=== PATIENT | female | born 1950 | race Caucasian/White ===

== ENCOUNTER → 2016-08-07 | Outpatient (CLI) | payer OTHER, MEDICARE ==
[~2016-08-07] MED LIST: ASPCH81X PO; CHOL100010 PO; FLAX100019 PO; GING550C PO; LEVO100T PO; LISI-787 PO; OXYB5TAB74 PO; SIMV40TA2 PO; TRIA1SPR4 NAE
[2016-08-07 15:41] LABS: BASO % 0.6 %; BASO ABS # 0.04 K/uL (0-0.2); COMPLETE YES; EOS % 1.8 %; HEMATOCRIT 39.3 % (37-47); IG% 0.1 %; LYMPH % 35.6 %; MEAN CELL VOLUME 90.8 fL (80-100); MEAN CORPUSCULAR HEMOGLOBIN 29.3 pg (25-34); MEAN CORPUSCULAR HGB CONC 32.3 g/dl (32-36); MEAN PLATELET VOLUME 8.7 fL (7.4-10.4); MONO % 11.6 %; NEUT % 50.3 %; PLATELET COUNT 385 K/uL (130-400); RED BLOOD COUNT 4.33 M/uL (4.2-5.4); WHITE BLOOD COUNT 6.74 K/uL (4.8-10.8)
[2016-08-07 16:05] LABS: ALT/SGPT 50 U/L (12-78); AST/SGOT 23 U/L (15-37)
[2016-08-07 16:46] LABS: LYME DISEASE AB IGG POS (NEG); LYME DISEASE AB IGM EQUIVOCAL (NEG)
[2016-08-13 15:53] LABS: 18KDIGG BAND REACTIVE (NONREACTIVE); 23KDIGG BAND REACTIVE (NONREACTIVE); 23KDIGM BAND REACTIVE (NONREACTIVE); 28KDIGG BAND REACTIVE (NONREACTIVE); 30KDIGG BAND REACTIVE (NONREACTIVE); 39KDIGG BAND REACTIVE (NONREACTIVE); 39KDIGM BAND REACTIVE (NONREACTIVE); 41KDIGG BAND REACTIVE (NONREACTIVE); 41KDIGM BAND NONREACTIVE (NONREACTIVE); 45KDIGG BAND REACTIVE (NONREACTIVE); 58KDIGG BAND REACTIVE (NONREACTIVE); 66KDIGG BAND REACTIVE (NONREACTIVE); 93KDIGG BAND REACTIVE (NONREACTIVE)
== END | disposition home or self-care (01) ==
LOC: C.LAB 14:58
DX: R50.9 Fever, unspecified (principal)

== ENCOUNTER → 2016-10-11 | Outpatient (CLI) | payer OTHER, MEDICARE ==
--- NOTE | 2016-10-11 13:36 | MAMMOGRAPHY REPORT ---
BILATERAL DIGITAL DIAGNOSTIC MAMMOGRAM TOMOSYNTHESIS WITH CAD AND TARGETED LEFT ULTRASOUND: 10/11/2016 CLINICAL HISTORY: History of left breast cancer status post lumpectomy April 2015. The patient repor ts she did not undergo radiation therapy. The pathology report shows negative margins at the lumpect joaquina site. [place] lymph node biopsy did show one lymph node with microinvasion. The patient denies any current complaints. TECHNIQUE: Breast tomosynthesis in addition to standard 2D mammography was performed. Current study was also evaluated with a Computer Aided Detection (CAD) system. Bilateral CC and MLO 2-D and tomosy nthesis images and spot magnification left CC and ML views were obtained. COMPARISON: Comparison is made to exams dated: 03/13/2015 mammogram, 03/06/2015 mammogram, 03/03/2014 m ammogram, 03/13/2015 ultrasound, 03/01/2013 mammogram, and 02/20/2012 mammogram - [facility] enter. BREAST COMPOSITION: The tissue of both breasts is heterogeneously dense, which may obscure small mas ses. FINDINGS: There are new post surgical changes in the left medial breast at approximately 9:00 from p rior lumpectomy, including new density and architectural distortion at the lumpectomy bed. A linear scar marker denotes a scar on the left 9:00 breast. Spot magnification views of the lumpectomy bed d emonstrate no suspicious masses or clusters of microcalcifications. However, there is an abnormally enlarged left axillary lymph node which measures 2.3 x 1.9 cm. Additionally, there is another smalle r 5 mm left axillary lymph node which is not clearly morphologically normal mammographically. The remainder of both breasts are stable compared to prior exams, without suspicious masses, calcific ations, or areas of architectural distortion noted. Targeted ultrasound was performed of the left axillary region in the region of the abnormal lymph nod es seen mammographically. In the left low axilla, at approximately 1:00 8 cm from the nipple, there is an abnormally enlarged left axillary lymph node which lacks a normal fatty hilum and demonstrates significant cortical thickening. The lymph node measures 2.2 x 1.5 cm in size. This corresponds wit h the dominant abnormal lymph node seen mammographically. Additionally, higher in the left axilla is a 3 x 4 mm lymph node which is round in shape and also lacks a fatty hilum and is morphologically ab normal. This corresponds with the smaller lymph node seen mammographically. The 2 lymph nodes are w orrisome for metastases and ultrasound guided biopsy of at least one of the lymph nodes is recommende d for further evaluation. Other morphologically normal left axillary lymph nodes are seen which demo nstrate normal fatty hilum and thin peripheral cortices. IMPRESSION: ACR BI-RADS CATEGORY 4C: MODERATE SUSPICION FOR MALIGNANCY, TARGETED ULTRASOUND ACR BI-R ADS CATEGORY 4C: MODERATE SUSPICION FOR MALIGNANCY 1. Two morphologically normal left axillary lymph nodes, the largest measuring 2.2 cm in size. The lymph nodes are worrisome for metastases and ultrasound guided biopsy of the dominant abnormal left a xillary lymph node is recommended for further evaluation. The other smaller lymph node could also be biopsied if clinically necessary (if it would change surgical management). 2. Expected post surgical changes in the left 9:00 breast from prior lumpectomy, with no mammographic evidence of malignancy involving breast parenchyma bilaterally. A phone call was made to the physician's office to confirm faxed results were received. The patient has been verbally notified of the results. She tentatively scheduled the biopsy [facility] Approximately 10% of breast cancers are not detected with mammography. A negative mammographic report should not delay biopsy if a clinically suggestive mass is present. Vivienne Nogueira M.D. ah/:10/11/2016 12:00:31 Cell Cleaner: Linda ESPINOZA)(Mayra), [facility] letter sent: Abnormal 4/5 BI-RADS Code: ACR BI-RADS Category 4C: Moderate Suspicion For Malignancy Ultrasound BI-RADS: ACR BI- RADS Category 4C: Moderate Suspicion For Malignancy
== END | disposition home or self-care (01) ==
LOC: C.MAMM 09:19
PROVIDERS: ATTEND Internal Medicine Hematology & Oncology
DX: C50.912 Malignant neoplasm of unspecified site of left female breast (principal); R92.8 Other abnormal and inconclusive findings on diagnostic imaging of breast

== ENCOUNTER → 2016-11-01 | Outpatient (CLI) | payer OTHER, MEDICARE ==
--- NOTE | 2016-11-01 14:19 | Discharge Instructions ---
Discharge Instructions Procedure Procedure Date: Nov 01, 2016. Reason for visit: Left Axillary Lymph Node. Discharge Discharge Date: Nov 01, 2016. Discharge Diagnosis: status post biopsy Instructions Activity Recommendations: Additional Limitations (see below) Return to School/Work: no limitations Recommended Home Diet: No Limitations Provider Instructions: ACTIVITY RECOMMENDATIONS: * No lifting, pushing, pulling or exercising the affected side for three days. RETURN TO SCHOOL/WORK: * You may return to work/school after the procedure, but do not perform any strenuous activities for 24 to 48 hours. MEDICATIONS: * Tylenol (two 325 mg) every four to six hours if needed for mild pain (if not allergic to Tylenol). DIET: * Resume previous diet. SPECIAL CARE INSTRUCTIONS: * Keep biopsy site dry for 24 hours. May shower after 24 hours, but do not soak (bathe) incision. * May remove Tegaderm (plastic patch) tomorrow AFTER showering. * Leave the steri-strips on for one week. Allow the steri-strips to fall off by themselves. If not off after one week, you may remove them. You may place a Bandaid crosswise over the strips, if desired. * Apply ice 10 minutes on and 10 minutes off as needed. * Wear a bra at bedtime to sleep more comfortably for 2-3 days. * Your referring physician should have the results after approximately 5 to 7 business days. * Call for unusual bleeding, fever, drainage, etc or if you have any questions call during normal business hours or after hours call Dr Nogueira, [phone]. FOLLOW UP VISIT: Follow-up with Referring Physician as scheduled. Allergies Coded Allergies: No Known Allergies (Unverified Allergy, Mild, 01/13/06) Jesica Somers Recommendations: Call your doctor if: * Temperature above 101 degrees * Pain not relieved by pain medicine ordered * There is increased drainage or redness from any incision * You have any unanswered questions or concerns. Your Doctors Instructions noted above were prepared by provider Vivienne Nogueira. Patient Signature Section: Patient Instructions Signature Page Matilde Hinson Patient (or Guardian) Signature/Date: I have read and understand the instructions given to me by my caregivers. Caregiver/RN/Doctor Signature/Date: The above-named patient and/or guardian has received patient instructions on this date. + Original Patient Signature Page (only) stays with chart. Please make copy for patient.
--- NOTE | 2016-11-01 16:10 | MAMMOGRAPHY REPORT ---
UNILATERAL LEFT DIGITAL DIAGNOSTIC MAMMOGRAM: 11/01/2016 CLINICAL HISTORY: Status post ultrasound guided biopsy of an abnormal left axillary lymph node. TECHNIQUE: Postprocedural left ML and XCCL views were obtained. COMPARISON: Comparison is made to exams dated: 10/11/2016 ultrasound, 10/11/2016 mammogram, 03/13/2015 ultrasound biopsy, 03/13/2015 mammogram, 03/13/2015 ultrasound, and 03/06/2015 mammogram - [facility]. BREAST COMPOSITION: The tissue of the left breast is heterogeneously dense, which may obscure small masses. FINDINGS: A new ribbon-shaped biopsy marker clip is seen within the biopsied abnormal left axillary lymph node. No significant postbiopsy hematoma is seen. IMPRESSION: POST PROCEDURE IMAGING FOR MARKER PLACEMENT New biopsy marker clip status post ultrasound-guided biopsy of an abnormal left axillary lymph node. Pathology results are pending. Approximately 10% of breast cancers are not detected with mammography. A negative mammographic report should not delay biopsy if a clinically suggestive mass is present. Vivienne Nogueira M.D. /:11/01/2016 14:28:21 Crushed Stone Grader: Josie ESPINOZA)(Mayra), [facility] BI-RADS Code: Post Procedure Imaging For Marker Placement
--- NOTE | 2016-11-01 16:10 | MAMMOGRAPHY REPORT ---
ULTRASOUND GUIDED BIOPSY LEFT BREAST: 11/01/2016 CLINICAL HISTORY: Abnormal left axillary lymph nodes. PATIENT CONSENT: The procedure, risks and benefits were discussed with the patient and informed writt en consent was obtained. A timeout was performed immediately prior to the procedure. PROCEDURE DESCRIPTION: With ultrasound guidance, aseptic technique, and lidocaine as the local anesth etic (1% lidocaine to anesthetize the skin and 1% lidocaine with epinephrine to anesthetize the deepe r tissues), the dominant abnormal left axillary lymph node was sampled 3 times with a 14-gauge Achiev e biopsy needle. Immediately thereafter, with ultrasound guidance, aseptic technique, and lidocaine as the local anesthetic, a metallic localizer clip was placed centrally in the lymph node. Direct pr essure was applied to the site immediately post procedure and hemostasis was achieved. Postprocedure unilateral mammograms were performed to confirm clip placement. The patient tolerated the procedure without complication. She was given wound care instructions. The specimens were sent to pathology fo r analysis. COMPARISON: Comparison is made to exams dated: 11/01/2016 mammogram, 10/11/2016 mammogram, 03/13/2015 m ammogram, 03/06/2015 mammogram, 03/03/2014 mammogram, and 03/01/2013 mammogram - [facility] enter. IMPRESSION: ULTRASOUND GUIDED BIOPSY Ultrasound guided core needle biopsy of the dominant abnormal left axillary lymph node, with clip damon cement. The patient will receive pathology results from her referring provider. Vivienne Nogueira M.D. ah/:11/01/2016 14:21:05 Pack Worker Supervisor: Josie TREVINO(R)(M), [facility]
== END | disposition home or self-care (01) ==
LOC: C.MAMM 13:59
PROVIDERS: ATTEND Internal Medicine Hematology & Oncology
DX: C77.3 Secondary and unspecified malignant neoplasm of axilla and upper limb lymph nodes (principal); Z85.3 Personal history of malignant neoplasm of breast

== ENCOUNTER → 2017-01-01 | Outpatient (CLI) | payer OTHER, MEDICARE ==
[~2017-01-01] MED LIST changes: +DTR/5 PO; -OXYB5TAB74 PO
--- NOTE | 2017-01-01 16:36 | ECHOCARDIOGRAM REPORT ---
*NOTICE TO RECEIVING LIBERTARIAN AGENCY This information is strictly Confidential and protected under [place] law. [place] law prohibits you from making any further disclosure of this information unless further disclosure is expressly permitted by the written consent of the person to whom it pertains or is authorized by law. A general authorization for the release of medical or other information is not sufficient for this purpose. Hospital accepts no responsibility if the information is made available to any other person, INCLUDING THE PATIENT. Interpretation Summary * Name: SUNITA GARIBAY Study Date: 01/01/2017 02:57 PM BP: 144/66 mmHg * Patient Location: [facility] HR: 71 * : 1950 (M/d/yyyy) Gender: Female Height: 67 in * Age: 66 yrs Ethnicity: [place] Weight: 172 lb * Ordering Physician: Tristan Hunter MD * Performed By: Kaitlin Hong RDCS * * Reason For Study: Breast cancer * BSA: 1.9 m2 * -- Conclusions -- * Left ventricular systolic function is normal. * No regional wall motion abnormalities noted. * Ejection Fraction = 55-60%. * No significant valvular pathology. Procedure Details * A complete two-dimensional transthoracic echocardiogram was performed (2D, M-mode, Doppler and color flow Doppler). * A contrast injection of Definity was performed to improve assessment of LV function. * Contrast was injected into an intravenous site in the central line. * One vial of Definity ultrasound contrast was diluted in normal saline to a total volume of 10 ml. A total of '3' ml of solution was administered during imaging. * Lot # [id number] of Definity utilized for procedure. * Expiration date Feb 03. * The attending nurse who injected the contrast agent was Dr. Johnny Bal MD, RN. Left Ventricle * The left ventricle is normal in size. * There is normal left ventricular wall thickness. * Ejection Fraction = 55-60%. * Left ventricular systolic function is normal. * No regional wall motion abnormalities noted. Right Ventricle * The right ventricle is grossly normal size. * The right ventricular systolic function is normal as assessed by tricuspid annular plane systolic excursion (TAPSE) (normal >1.5 cm). Atria * The left atrium is mildly dilated. * Borderline right atrial enlargement. * No ASD detected; PFO is not assessed. Mitral Valve * The mitral valve anatomy is normal. * There is no mitral valve stenosis. * Significant mitral regurgitation is absent. Tricuspid Valve * The tricuspid valve is not well visualized, but is grossly normal. * There is no tricuspid stenosis. * Significant tricuspid regurgitation is absent. Aortic Valve * The aortic valve is tricuspid. The leaflet thickness if normal. There is no aortic stenosis, and no significant insufficiency. * No hemodynamically significant valvular aortic stenosis. * No aortic regurgitation is present. Pulmonic Valve * The pulmonary valve is not well seen, but the Doppler examination is normal without significant regurgitation or stenosis. Great Vessels * The aortic root is normal size. * The pulmonary is not well visualized. Pericardium/Pleural * There is no pericardial effusion. Great Vessels * Normal inferior vena cava size and collapsability with sniff indicates a normal right atrial pressure of 3 mmHg MMode 2D Measurements and Calculations IVSd 0.98 cm LVIDd 4.1 cm LVIDs 2.6 cm LVPWd 1.2 cm IVS/LVPW 0.83 FS 35.2 % EDV(Teich) 73.2 ml ESV(Teich) 25.6 ml EF(Teich) 65.0 % EDV(cubed) 67.7 ml ESV(cubed) 18.5 ml EF(cubed) 72.8 % LV mass(C)d 147.1 grams LV mass(C)dI 77.6 grams/m\S\2 SV(Teich) 47.6 ml SI(Teich) 25.1 ml/m\S\2 SV(cubed) 49.3 ml SI(cubed) 26.0 ml/m\S\2 Ao root diam 2.7 cm Ao root area 5.7 cm\S\2 ACS 1.7 cm LA dimension 3.9 cm asc Aorta Diam 3.0 cm LA/Ao 1.5 LVOT diam 2.0 cm LVOT area 3.1 cm\S\2 LVAd ap4 30.4 cm\S\2 LVLd ap4 7.8 cm EDV(MOD-sp4) 96.6 ml EDV(sp4-el) 101.3 ml LVAs ap4 15.0 cm\S\2 LVLs ap4 6.0 cm ESV(MOD-sp4) 31.0 ml ESV(sp4-el) 32.0 ml EF(MOD-sp4) 67.9 % EF(sp4-el) 68.4 % LVAd ap2 29.6 cm\S\2 LVLd ap2 6.8 cm EDV(MOD-sp2) 104.1 ml EDV(sp2-el) 108.8 ml LVAs ap2 14.2 cm\S\2 LVLs ap2 5.4 cm ESV(MOD-sp2) 30.6 ml ESV(sp2-el) 31.7 ml EF(MOD-sp2) 70.6 % EF(sp2-el) 70.9 % LVLd %diff -13.50 % EDV(MOD-bp) 107.3 ml LVLs %diff -11.23 % ESV(MOD-bp) 31.8 ml EF(MOD-bp) 70.3 % SV(MOD-sp4) 65.6 ml SI(MOD-sp4) 34.6 ml/m\S\2 SV(MOD-sp2) 73.5 ml SI(MOD-sp2) 38.8 ml/m\S\2 SV(MOD-bp) 75.4 ml SI(MOD-bp) 39.8 ml/m\S\2 SV(sp4-el) 69.2 ml SI(sp4-el) 36.5 ml/m\S\2 SV(sp2-el) 77.1 ml SI(sp2-el) 40.7 ml/m\S\2 Doppler Measurements and Calculations MV E max sybil 83.6 cm/sec MV A max sybil 86.8 cm/sec MV E/A 0.96 MV dec time 0.21 sec Ao V2 max 143.4 cm/sec Ao max PG 8.2 mmHg Ao max PG (full) 1.9 mmHg DANI(V,A) 2.7 cm\S\2 DANI(V,D) 2.7 cm\S\2 LV V1 max PG 6.3 mmHg LV V1 max 125.5 cm/sec PA V2 max 123.1 cm/sec PA max PG 6.1 mmHg PA acc slope 693.0 cm/sec\S\2 PA acc time 0.09 sec TR max sybil 106.8 cm/sec PA pr(Accel) 37.3 mmHg
== END | disposition home or self-care (01) ==
LOC: C.CPL 14:50
PROVIDERS: ATTEND Internal Medicine Hematology & Oncology
DX: C50.312 Malignant neoplasm of lower-inner quadrant of left female breast (principal)

== ENCOUNTER → 2017-07-07 | Outpatient (CLI) | payer OTHER, MEDICARE ==
[~2017-07-07] MED LIST changes: +CALC1TAB27 PO; +FMR25 PO; -GING550C PO; -SIMV40TA2 PO
[2017-07-07 17:38] LABS: BASO % 0.6 %; BASO ABS # 0.03 K/uL (0-0.2); EOS % 3.9 %; EOS ABS # 0.21 K/uL (0-0.5); HEMATOCRIT 35.8 % (37-47); HEMOGLOBIN 12.2 g/dL (12.0-16.0); IG# 0.01 K/uL (0.00-0.02); LYMPH % 15.7 %; LYMPH ABS # 0.84 K/uL (1.2-3.4); MEAN CELL VOLUME 89.5 fL (80-100); MEAN CORPUSCULAR HEMOGLOBIN 30.5 pg (25-34); MEAN CORPUSCULAR HGB CONC 34.1 g/dl (32-36); MEAN PLATELET VOLUME 9.1 fL (7.4-10.4); MONO % 12.4 %; MONO ABS # 0.66 K/uL (0.11-0.59); NEUT % 67.2 %; NEUT ABS # 3.59 K/uL (1.4-6.5); PLATELET COUNT 297 K/uL (130-400); RED CELL DISTRIBUTION WIDTH CV 13.5 % (11.5-14.5); RED CELL DISTRIBUTION WIDTH SD 44.5 fL (36.4-46.3); WHITE BLOOD COUNT 5.34 K/uL (4.8-10.8)
[2017-07-07 18:10] LABS: ALBUMIN 3.7 gm/dl (3.4-5.0); ALKALINE PHOSPHATASE 72 U/L (45-117); ALT/SGPT 23 U/L (12-78); AST/SGOT 19 U/L (15-37); BLOOD UREA NITROGEN 26 mg/dl (7-18); CALCIUM 9.1 mg/dl (8.5-10.1); CARBON DIOXIDE 29 mmol/L (21-32); GLUCOSE 91 mg/dl (70-99); POTASSIUM 3.8 mmol/L (3.5-5.1); SODIUM 138 mmol/L (136-145)
== END | disposition home or self-care (01) ==
LOC: C.LAB 16:12
PROVIDERS: ATTEND Internal Medicine Hematology & Oncology
DX: C50.312 Malignant neoplasm of lower-inner quadrant of left female breast (principal)

== ENCOUNTER → 2017-09-30 | Outpatient (CLI) | payer OTHER, MEDICARE ==
[2017-09-30 10:06] LABS: BASO ABS # 0.04 K/uL (0-0.2); EOS ABS # 0.24 K/uL (0-0.5); HEMATOCRIT 37.4 % (37-47); HEMOGLOBIN 12.5 g/dL (12.0-16.0); IG# 0.01 K/uL (0.00-0.02); LYMPH % 25.7 %; LYMPH ABS # 1.02 K/uL (1.2-3.4); MEAN CELL VOLUME 92.3 fL (80-100); MEAN CORPUSCULAR HEMOGLOBIN 30.9 pg (25-34); MEAN CORPUSCULAR HGB CONC 33.4 g/dl (32-36); MONO % 12.3 %; MONO ABS # 0.49 K/uL (0.11-0.59); NEUT % 54.7 %; NEUT ABS # 2.17 K/uL (1.4-6.5); PLATELET COUNT 304 K/uL (130-400); RED CELL DISTRIBUTION WIDTH CV 12.7 % (11.5-14.5); WHITE BLOOD COUNT 3.97 K/uL (4.8-10.8)
[2017-09-30 10:35] LABS: ALBUMIN 3.7 gm/dl (3.4-5.0); ALKALINE PHOSPHATASE 73 U/L (45-117); ALT/SGPT 21 U/L (12-78); AST/SGOT 14 U/L (15-37); BLOOD UREA NITROGEN 18 mg/dl (7-18); CALCIUM 8.8 mg/dl (8.5-10.1); CARBON DIOXIDE 28 mmol/L (21-32); GLUCOSE 89 mg/dl (70-99); POTASSIUM 3.9 mmol/L (3.5-5.1); SODIUM 139 mmol/L (136-145)
== END | disposition home or self-care (01) ==
LOC: C.LAB 09:20
PROVIDERS: ATTEND Internal Medicine Hematology & Oncology
DX: C50.312 Malignant neoplasm of lower-inner quadrant of left female breast (principal)

== ENCOUNTER → 2017-10-09 | Outpatient (CLI) | payer OTHER, MEDICARE ==
--- NOTE | 2017-10-09 15:11 | MAMMOGRAPHY REPORT ---
BILATERAL DIGITAL DIAGNOSTIC MAMMOGRAM TOMOSYNTHESIS WITH CAD: 10/09/2017 CLINICAL HISTORY: History of left breast cancer status post lumpectomy. 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 The pat ient has undergone left axillary dissection as well as chemoradiation since she was last seen here. S he denies any current complaints. TECHNIQUE: Breast tomosynthesis in addition to standard 2D mammography was performed. Current study w as also evaluated with a Computer Aided Detection (CAD) system. Bilateral CC and MLO 2D and tomosynt hesis images and spot magnification left CC and ML views were obtained. COMPARISON: Comparison is made to exams dated: 11/01/2016 mammogram, 10/11/2016 mammogram, 03/13/2015 m ammogram, 03/06/2015 mammogram, 03/13/2015 ultrasound biopsy, and 03/03/2014 mammogram - [facility]. BREAST COMPOSITION: The tissue of both breasts is heterogeneously dense, which may obscure small mass es. FINDINGS: Again noted are postsurgical changes in the left medial breast from prior lumpectomy, including densi ty and architectural distortion at the surgical bed. Spot magnification views of the surgical bed de monstrate no suspicious masses or clusters of microcalcifications. There is new mild diffuse left br east and trabecular thickening, which is likely related to prior radiation therapy. A linear scar ma rker overlies the left medial breast and left axillary region. A ribbon-shaped biopsy marker clip is seen within the left upper outer quadrant denoting the axillary lymph node for which ultrasound-guid ed biopsy was performed and yielded a genevieve metastasis. There has been significant interval decrease in size of the biopsied left axillary lymph node, previously measuring 2.3 x 1.9 cm mammographically , currently measuring 7 x 5 mm. Given that the biopsy yielded a genevieve metastasis, surgical consultati on is recommended to determine if surgical excision of the lymph node is needed. The remainder of both breasts are stable compared to prior exams, without suspicious masses, calcific ations, or areas of architectural distortion noted. IMPRESSION: ACR BI-RADS CATEGORY 4: SUSPICIOUS 1. Stable postsurgical changes in the left medial breast from prior lumpectomy. New left breast ski n and trabecular thickening is likely due to interval radiation therapy. Recommend follow-up diagnos tic tomosynthesis mammograms of the left breast in 6 months to reevaluate posttreatment changes. 2. Significant interval decrease in size of the previously biopsied left axillary lymph node which y ielded a genevieve metastasis on pathology, now measuring 7 mm in size. The ribbon-shaped biopsy marker clip placed at the time of the biopsy is present within the lymph node. Surgical consultation is rec ommended to determine if surgical excision is needed. 3. No mammographic evidence of malignancy in the right breast. Recommend follow-up in 1 year. A phone call was made to the physician's office to confirm faxed results were received. The patient has been verbally notified of the results. An attempt was made to call Dr. Beard on 09/18, however, she was not in the office. Some breast cancers are not detected with mammography. A negative mammographic report should not chance y biopsy if a clinically suggestive mass is present. Vivienne Nogueira M.D. ah/:10/09/2017 09:52:56 Creative Director: Sara Rondon, [facility] letter sent: Abnormal 4/5 BI-RADS Code: ACR BI-RADS Category 4: Suspicious
== END | disposition home or self-care (01) ==
LOC: C.MAMM 08:58
PROVIDERS: ATTEND Surgery
DX: Z85.3 Personal history of malignant neoplasm of breast (principal); Z08 Encounter for follow-up examination after completed treatment for malignant neoplasm